=== PATIENT | female | born 2000 | race Caucasian/White ===

== ENCOUNTER → 2020-03-10 | Outpatient (REF) | payer BC | LOC: M WUC 19:31 | PROVIDERS: ATTEND Physician Assistant | DX: R30.0 Dysuria (principal) ==

== ENCOUNTER → 2020-04-21 | Outpatient (CLI) | payer BC ==
--- NOTE | 2020-06-03 11:34 | REP ---
OBSTETRIC SONOGRAPHY HISTORY: Supervision of for anatomy. This report was delayed due to a protracted network disruption experienced by this facility. FINDINGS: Scanning through the gravid uterus demonstrates a viable single intrauterine gestation in a cephalic lie. The placenta is anterior grade 1 without evidence of previa or abruption. Amniotic fluid is subjectively normal. heart rate is recorded at 155 beats per minute. No anomaly is seen. The following anatomic structures are identified and felt to be unremarkable: Cisterna magna, cavum septum, thalami, spine, left-sided stomach, kidneys and bladder, four chamber heart with left and right ventricular outflow tract views, three-vessel cord, abdominal wall cord insertion, lower extremities and upper extremities, face and lips. BIOMETRY CHART: BPD 49 mm 20 weeks 6 days Head Circumference 191 mm 21 weeks 3 days Abdominal Circumference 173 mm 22 weeks 2 days Femur Length 44 mm 24 weeks 4 days Humeral Length 39 mm 22 weeks 6 days Estimated Weight 548 g IMPRESSION: Viable single intrauterine gestation at 22 weeks 2 days by todays composite criteria. Estimated date of delivery (SABINE) by todays criteria 08/23/2020. anatomic survey is felt to be complete. MTDD
== END ==
LOC: M WHC 06:50
PROVIDERS: ATTEND Advanced Practice Midwife
DX: Z34.02 Encounter for supervision of normal first pregnancy, second trimester (principal); Z3A.22 22 weeks gestation of pregnancy

== ENCOUNTER → 2020-05-24 | Outpatient (CLI) | payer BC ==
[2020-05-24 17:52] LABS: BASO % 0.2 % (0.0-1.0); EOS # 0.1 10^3/uL (0.0-0.5); EOS % 0.6 % (0.0-3.0); HEMATOCRIT 37.6 % (36.0-47.0); HEMOGLOBIN 12.8 g/dl (12.0-15.5); LYMPH # 2.1 10^3/uL (1.5-5.0); MEAN CORPUSCULAR HEMOGLOBIN 29.6 pg (27.0-33.0); MONO # 0.6 10^3/uL (0.0-0.8); MONO % 5.3 % (0.0-5.0); NEUTROPHILS # 7.6 10^3/uL (1.5-8.5); NEUTROPHILS % 73.3 % (36.0-66.0); PLATELET COUNT, AUTOMATED 258 10^3/uL (150-450); RED BLOOD COUNT 4.32 10^6/uL (4.00-5.40); WHITE BLOOD COUNT 10.3 10^3/uL (4.0-10.0)
== END ==
LOC: M PLALAB 14:41
PROVIDERS: ATTEND Advanced Practice Midwife
DX: Z34.82 Encounter for supervision of other normal pregnancy, second trimester (principal); Z3A.00 Weeks of gestation of pregnancy not specified